=== PATIENT | female | born 1970 | race Caucasian/White ===

== ENCOUNTER 2019-06-20 07:43 | Inpatient (IN) ==
--- NOTE | 2019-06-16 10:02 | History & Physical Report ---
Date of Service June 16, 2019 Assessment & Plan (1) Breast cancer, left: Patient has invasive carcinoma involving the left breast with extensive area of distortion early suspicious for DCIS extending over 5 to 8 cm. She also has evidence of left axillary lymph node abnormality Patient has many issues which have influenced her delay in treatment include transportation, communication, and monetary issues to name a few She is a very poor candidate for attempting any kind of medical management in this situation At the present time, understanding our Covid pandemic limitation in operating on patients-I feel free do not proceed with this operation patient survival is at risk Patient is for bilateral mastectomy with bilateral sentinel lymph node biopsy History of Present Illness Primary Care Provider: Adelina Cardenas DO Patient is a 49-year-old female with a history of invasive carcinoma of the left breast and diffuse DCIS She had a history of remote atypia many years prior 03/17/2019 patient underwent biopsy at our breast center which showed invasive carcinoma with DCIS Her imaging including an MRI showed extensive disease including malignant calcifications over 5 to 8 cm of the left breast There was also concern for normal left axillary lymph nodes Attempts at additional biopsies were unsuccessful because of the patient's severe anxiety and refusal She has been evaluated extensively by myself Dr. Mike Mccarthy, and the doctors at the breast care center At this point we are proceeding with bilateral mastectomy Allergies Allergy/AdvReac Type Severity Reaction Status Date / Time Penicillins AdvReac Intermediate Rash and Verified 06/15/19 12:08 vomiting Home Medications Home Medications Medication Instructions Recorded Confirmed Type aspirin [Aspir-81] 81 mg PO QAM 06/15/19 06/15/19 History citalopram [Celexa] 10 mg PO QPM 06/15/19 06/15/19 History hydrocodone-acetaminophen [[place]] 1 tab PO QPM PRN 06/15/19 06/15/19 History Past Med/Surg History Medical History (Updated 06/15/19 @ 12:24 by Amanda Mitchell RN) Anemia Anxiety Arthritis Atrial fibrillation Breast cancer, left Chronic pain hip, back, neck Coronary artery disease Depression Diabetes mellitus, type 2 diet History of [place] (myocardial infarction) x 3 Hyperlipidemia Intellectual disability Third Level IQ Migraine headache Poor historian Poor long-term memory Stomach ulcer Surgical History (Updated 06/15/19 @ 12:24 by Amanda Mitchell RN) History of section 1990 History of tooth extraction wisdom teeth Hx of breast surgery L breast biopsy Social History Preferred Language: Ukrainian Communication Ability: Impaired Visual Impairment: Limited Hearing Ability: Normal Coating Engineer Required: No Beliefs That Will Affect Care: None marital status: Legally marital status details: Lives with Jenae. Current Living Situation: Significant Other current occupational status: unemployed Feels Safe at Home: Yes Smoking Status: Former smoker Tobacco Type: cigarettes ; Second Hand Exposure: Yes ; Hx Alcohol Use: No Hx Substance Use: No Childhood Exposure to Second-Hand Smoke: No caffeine: Yes (coffee x 1 per day.) during the past year weight has: remained stable Dental Care, Regularly: No Physical Activity Frequency: Does not Exercise Seatbelt Use: always Sunscreen Use: Yes Review of Systems All systems reviewed & are unremarkable except as noted in HPI & below Physical Exam Physical Exam: Patient's left breast does show fullness in the area of suspicion on her imaging Constitutional: well developed and well nourished; no acute distress Eyes: + anicteric sclerae Respiratory: normal respiratory effort; no respiratory distress Cardiovascular: Rate/Rhythm: regular rate Gastrointestinal (Abdomen): Percussion/Palpation: abdomen soft Musculoskeletal: Gait: normal gait Skin: no rashes, warm and dry Neurologic: awake Psychiatric: Orientation: alert
--- NOTE | 2019-06-19 10:30 | Anesthesiology Consultation ---
Date of Service June 19, 2019 Assessment & Plan (1) Encounter for pre-operative examination: Chart Review Chart Review: Pending: Refer to Additional Notes / Consult section (pending day of procedure ecg.) and Patient NOT seen in Pre Admission Testing Consults Requested none History Surgery Operation Date: 06/20/19 10:00 Proposed Procedures p Bilateral Breast Mastectomy with Bilateral [place] Lymph Node Biopsy - Eloy Parkinson MD, FACS Height/Weight Height: 5 ft 7 in Weight: 89.358 kg Allergies Allergy/AdvReac Type Severity Reaction Status Date / Time Penicillins AdvReac Intermediate Rash and Verified 06/15/19 12:08 vomiting Medications Home Medications Medication Instructions Recorded Confirmed Last Taken aspirin [Aspir-81] 81 mg PO QAM 06/15/19 06/15/19 Unknown citalopram [Celexa] 10 mg PO QPM 06/15/19 06/15/19 Unknown hydrocodone-acetaminophen [[place]] 1 tab PO QPM PRN 06/15/19 06/15/19 Unknown Past Medical History Medical History Anemia Anxiety Arthritis Atrial fibrillation Breast cancer, left Chronic pain hip, back, neck Coronary artery disease Depression Diabetes mellitus, type 2 diet History of [place] (myocardial infarction) x 3 Hyperlipidemia Intellectual disability Third Level IQ Migraine headache Poor historian Poor long-term memory Stomach ulcer Past Family History Family History Mother Anxiety Depression Diabetes Heart disease Lung disease Seizure Sister Anxiety Grandmother (Maternal) Lung cancer Grandfather (Maternal) Myocardial infarction Coronary heart disease Father Diabetes Denies family history of Ovarian cancer Prostate cancer Colorectal cancer Past Surgical History Surgical History History of section 1990 History of tooth extraction wisdom teeth Hx of breast surgery L breast biopsy Social History Smoking Status: Never smoker tobacco type: cigarettes Do You Dip or Chew Tobacco: No Smoking End Date: 5 years ago Hx Alcohol Use: No Hx Substance Use: No substance use type: does not use Testing Laboratory Results Laboratory Tests 10/06/18 06/16/19 06/16/19 15:06 00:00 00:00 WBC 6.6 Hgb 13.9 Hct 45.3 Plt Count 319 Sodium 140 Potassium 3.9 Chloride 103 Carbon Dioxide 29 BUN 11 Creatinine 0.9 Glucose 113 H Hemoglobin A1c 6.0 H
--- NOTE | 2019-06-20 06:53 | History & Physical Report ---
Date of Service June 20, 2019 Assessment & Plan (1) Breast cancer, left: for Bilateral mastectomy with Left sentinel lymph node biopsy [facility], Gen LMA admit for observation we do not have enough nuclear tracer to perform both sides- It has been extremely difficult to get the pt to this point for surgery- we will proceed with surgery and Lt SLN bx- if Rt breast shows Invasive Ca on path- may need Rt SLN bx later History of Present Illness Primary Care Provider: Adelina Cardenas, DO 49 yo female with h/o Lt breast Invasive ductal Ca with extensive malignant appearing calcs over 5-8 cm on imaging including MRI Pt is not in favor of addnl bxs and has decided on bilateral mastectomy with Left sentinel lymph node bx she has suspicious appearing LNs in Lt axilla and may require Lt axillary dissection she has seen Dr Mccarthy - oncology and he is in agreement Allergies Allergy/AdvReac Type Severity Reaction Status Date / Time Penicillins AdvReac Intermediate Rash and Verified 06/20/19 08:42 vomiting Home Medications Home Medications Medication Instructions Recorded Confirmed Type aspirin [Aspir-81] 81 mg PO QAM 06/15/19 06/20/19 History citalopram [Celexa] 10 mg PO QPM 06/15/19 06/20/19 History hydrocodone-acetaminophen [[place]] 1 tab PO QPM PRN 06/15/19 06/20/19 History Past Med/Surg History Medical History Anemia Anxiety Arthritis Atrial fibrillation Breast cancer, left Chronic pain hip, back, neck Coronary artery disease Depression Diabetes mellitus, type 2 diet History of [place] (myocardial infarction) x 3 Hyperlipidemia Intellectual disability Third Level IQ Migraine headache Poor historian Poor long-term memory Stomach ulcer Surgical History History of section 1990 History of tooth extraction wisdom teeth Hx of breast surgery L breast biopsy Family History Mother Anxiety Depression Diabetes Heart disease Lung disease Seizure Sister Anxiety Grandmother (Maternal) Lung cancer Grandfather (Maternal) Myocardial infarction Coronary heart disease Father Diabetes Denies family history of Ovarian cancer Prostate cancer Colorectal cancer Social History Preferred Language: Danish Communication Ability: Effective Communication Ability Comment: limited reading Visual Impairment: Limited Hearing Ability: Normal Clinical Psychologist Private Practice Required: No Beliefs That Will Affect Care: None marital status: Legally marital status details: Lives with Jenae. Current Living Situation: Significant Other current occupational status: unemployed Other Information That Helps Us Care for You: No Feels Safe at Home: Yes Safety Concerns: Feels Safe At This Time Smoking Status: Never smoker Tobacco Type: cigarettes ; Do You Dip or Chew Tobacco: No ; Smoking End Date: 5 years ago ; Second Hand Exposure: Yes ; Hx Alcohol Use: No Hx Substance Use: No Childhood Exposure to Second-Hand Smoke: No caffeine: Yes (coffee x 1 per day.) during the past year weight has: remained stable Dental Care, Regularly: No Physical Activity Frequency: Does not Exercise Seatbelt Use: always Sunscreen Use: Yes Review of Systems All systems reviewed & are unremarkable except as noted in HPI & below Physical Exam Physical Exam: Lt breast fullness UOQ Constitutional: well developed and well nourished; no acute distress Eyes: + anicteric sclerae Respiratory: normal respiratory effort; no respiratory distress Cardiovascular: Rate/Rhythm: regular rate Gastrointestinal (Abdomen): Percussion/Palpation: abdomen soft Musculoskeletal: Gait: normal gait Skin: no rashes, warm and dry Neurologic: awake Psychiatric: Orientation: alert
[~2019-06-20 07:43] MED LIST: CLINDAMYCIN 900 MG in DEXTROSE 5% 50 ML IV SCH; LACTATED RINGER'S 1,000 ML IV SCH; ROCURONIUM BROMIDE 10 MG/ML 5 ML VIAL ONE
--- NOTE | 2019-06-20 08:56 | Nuclear Medicine Report ---
LYMPHOSCINTIGRAPHY CLINICAL HISTORY: Left breast cancer. PROCEDURE: Using standard sterile technique, 4 intradermal and one deep injection of 0.48 mCi of Lymp hoseek was placed in the left periareolar breast. The patient tolerated the procedure well. There wer e no immediate complications. The patient was subsequently transported to the surgical suite. No imag ing was obtained at the referring physician's request. IMPRESSION: Injection of 0.48 mCi of Lymphoseek in the left breast. ACT 112: Negative or not required by law. Electronically signed by: Frank Tirado M.D. 06/20/2019 8:54 AM
[2019-06-20] MEDS ORDERED: ATROPINE SULFATE 0.1 MG/ML 10ML SYR IV PRN (09:13)
[2019-06-20] MEDS ORDERED: ePHEDrine sulfate 50 MG/ML AMP IV PRN (09:13)
[2019-06-20] MEDS ORDERED: ONDANSETRON INJ 2 MG/ML 2 ML VIAL IV PRN ×2 (09:13→14:31)
[2019-06-20] MEDS ORDERED: fentaNYL citrate 100 MCG/2 ML VIAL IV PRN (09:13)
[2019-06-20] MEDS ORDERED: DEXAMETHASONE SOD INJ 4 MG/ML VIAL ONE (09:57)
[2019-06-20] MEDS ORDERED: fentaNYL citrate 100 MCG/2 ML VIAL ONE ×3 (09:57→12:17)
[2019-06-20] MEDS ORDERED: PROPOFOL IV EMULSION 10 MG/ML 20 ML VIAL IV ONE (09:57)
[2019-06-20] MEDS ORDERED: ONDANSETRON INJ 2 MG/ML 2 ML VIAL ONE (09:57)
[2019-06-20] MEDS ORDERED: LIDOCAINE HCL 2% 2 ML VIAL/AMP(20MG/ML) INFIL ONE (09:57)
[2019-06-20] MEDS ORDERED: BUPIVACAINE 0.5 % 5 MG/1 ML MPF 30ML VIAL ONE (09:58)
[2019-06-20] MEDS ORDERED: METHYLENE BLUE 0.5% 10 ML VIAL ONE (09:59)
[2019-06-20] MEDS ORDERED: ACETAMINOPHEN 1000 MG/100 ML IV IV ONE ×3 (11:57→13:41)
--- NOTE | 2019-06-20 13:05 | Post Operative Brief Note ---
PG Immediate Post Op with CF Date of Surgery June 20, 2019 Pre & Post Diagnosis Operation Date: 06/20/19 10:00 Pre-Op Diagnosis: Left Breast Cancer Post-Op Diagnosis: Left Breast Cancer I identified the patient and participated in the time-out.: Yes Procedure Operation Date: 06/20/19 10:00 Actual Procedures p Bilateral Breast Mastectomy with Left [place] Lymph Node Biopsy(Bilateral) - Eloy Parkinson MD, FACS Surgeon Eloy Parkinson MD, FACS Sleep Technician Talya Delgado Estimated Blood Loss 30 Findings Consistent with Post-Op Diagnosis Specimens Specimen Description: Permanent Specimens: A: right breast long lateral B) Left Axillary Lymph Node C) Left Axillary Tissue D) Left Breast, suture lateral/axilla Frozen Specimens: 1) Left [place] Lymph Node Drains Toni-Fischer Drain (bilateral breasts)
[2019-06-20] MEDS ORDERED: ACETAMINOPHEN 1,000 MG/100 ML VIAL IV ONE (13:06)
--- NOTE | 2019-06-20 13:23 | Operative Report (OR) ---
DATE OF OPERATION: 06/20/2019 NAME OF OPERATION: Bilateral mastectomy with sentinel lymph node biopsy on the left. PREOPERATIVE DIAGNOSIS: Left breast cancer. POSTOPERATIVE DIAGNOSIS: Same. STAFF SURGEON: Eloy Parkinson M.D. PACK OPERATOR: Chio Delgado. ANESTHESIA: General. DESCRIPTION OF PROCEDURE: The patient was brought in the operating room and placed on the operating table in supine position. Her arms were extended onto an arm board. Her chest and axilla were prepped and draped bilaterally. We began on the right side. The breasts were both marked for elliptical incision around the nipple areolar complex from sternum to axilla. The right side was approached. Incision was made superiorly and inferiorly and then the breast tissue was dissected away from the subcutaneous tissue down to the chest wall. The breast tissue was then dissected away from the pectoralis major muscle. The breast tissue in the right side was marked with a long silk suture lateral. The site was irrigated. Packing applied. At this point, the left side was approached. We made an incision in the axilla using the Neoprobe carrying dissection down identifying 3 axillary lymph nodes, 1 was very hot and sent for frozen section. The other 2 were sent for permanent section. Additional fatty tissue was taken from the axilla and sent for permanent section. The sentinel lymph node was negative. During the frozen section, mastectomy was performed on the left side. Elliptical incision made again from sternum to axilla incorporating the nipple areolar complex, dissecting the breast tissue away from the subcutaneous tissue superiorly and inferiorly down to the chest wall, dissecting the breast tissue away from the chest wall. There was some thickening in the axilla. This was marked with a long nylon suture in the lateral axillary area. At this point the wound was irrigated. The left axilla closed, reapproximating subcutaneous tissue using 2-0 plain suture and then the skin using 4-0 nylon suture. Chest wound reapproximated after placing #15 round Toni-Fischer drains into both wounds securing them using 3-0 nylon suture. Subcutaneous tissue was reapproximated using interrupted 3-0 Vicryl suture. Skin reapproximated using running subcuticular 4-0 Monocryl with Steri-Strips. Dressings applied and patient transferred to recovery room in stable condition. I attest to the content of the Intraoperative Record and any orders documented therein. Any exception s are noted below.
[2019-06-20] MEDS ORDERED: GLYCOPYRROLATE 0.2 MG/ML VIAL ONE (13:25)
[2019-06-20] MEDS ORDERED: NEOSTIGMINE METHYLSULFATE 5 MG/5 ML SYR ONE (13:25)
[2019-06-20] MEDS ORDERED: MoRPHine SULFATE 4 MG/ML 1 ML CARP\\VIAL IV PRN (14:31)
[2019-06-20] MEDS ORDERED: SODIUM CHLORIDE 0.9% 1000ML 1,000 ML IV SCH (14:31)
[2019-06-20] MEDS ORDERED: PROMETHAZINE HCL 25 MG in SODIUM CHLORIDE 0.9% 50 ML IV PRN (14:31)
[2019-06-20] MEDS ORDERED: PROMETHAZINE HCL 12.5 MG in SODIUM CHLORIDE 0.9% 50 ML IV PRN (14:31)
[2019-06-20] MEDS ORDERED: HYDROCODONE/ACETAMOPHEN 5/325MG TAB PO PRN (14:31)
[2019-06-20] MEDS ORDERED: MoRPHine SULFATE 2 MG/ML CARP IV PRN (14:31)
[2019-06-20] MEDS ORDERED: ACETAMINOPHEN 325 MG TAB PO PRN (14:31)
--- NOTE | 2019-06-20 14:36 | Anesthesiology Progress Note ---
Date of Service June 20, 2019 Anesthesia Post Procedure Vital Signs Vital Signs: Temp Pulse Pulse Resp BP BP Pulse Ox 06/20/19 14:27 97.3 F L 82 16 169/95 H 99 06/20/19 14:10 97.9 F 82 20 168/97 H 100 06/20/19 14:00 84 20 190/98 H 100 06/20/19 13:50 95 H 16 138/118 H 100 06/20/19 13:43 97.2 F L 90 14 149/99 H 100 06/20/19 08:54 99.1 F 74 18 145/87 H 96 Transfer of Care Handoff Completed per policy Notes Mental Status: alert / awake / arousable and participated in evaluation Patient Amnestic to Procedure: Yes Nausea / Vomiting: adequately controlled Pain: adequately controlled Airway Patency, RR, SpO2: stable & adequate BP & HR: stable & adequate Hydration State: stable & adequate Anesthetic Complications: no major complications apparent and Pt Satisfied with anesthetic care
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
[2019-06-20] MEDS ORDERED: HydrALAZINE HCL 20 MG/ML VIAL IV PRN (15:15)
[2019-06-20] MEDS: CEFAZOLIN 1000MG 1,000 MG/7.5 ML SYR IV SCH (15:22)
--- NOTE | 2019-06-20 16:07 | Electrocardiogram Report ---
Test Reason : Blood Pressure : / mmHG Vent. Rate : 075 BPM Atrial Rate : 075 BPM P-R Int : 138 ms QRS Dur : 096 ms QT Int : 394 ms P-R-T Axes : 048 048 038 degrees QTc Int : 439 ms Normal sinus rhythm Cannot rule out Anterior infarct , age undetermined Abnormal ECG No previous ECGs available Confirmed by Waldemar Gusman ([id number]) on 06/20/2019 4:07:03 PM Referred By: Eloy Parkinson Confirmed By:Waldemar Gusman
[2019-06-20] MEDS: HYDROCODONE/ACETAMOPHEN 5/325MG TAB PO PRN (18:33)
[2019-06-20] MEDS: CITALOPRAM 20 MG TAB PO SCH (20:28)
[2019-06-21] MEDS: CEFAZOLIN 1000MG 1,000 MG/7.5 ML SYR IV SCH ×4 (00:16→23:52)
[2019-06-21] MEDS: HYDROCODONE/ACETAMOPHEN 5/325MG TAB PO PRN (06:05)
[2019-06-21 06:08] LABS: Hematocrit (blood only) 38.7 % (37-47); Hemoglobin 12.7 g/dL (12.0-16.0); Mean Corpuscular Hemoglobin 27.5 pg (25-34); Mean Corpuscular Hgb Conc 32.8 g/dL (32-36); Mean Corpuscular Volume 83.9 fL (80-100); Mean Platelet Volume 9.9 fL (7.4-10.4); Platelet Count 321 K/uL (130-400); RDW Coefficient of Variation 15.2 % (11.5-14.5); RDW Standard Deviation 46.8 fL (36.4-46.3); Red Blood Count 4.61 M/uL (4.2-5.4); White Blood Count 9.47 K/uL (4.8-10.8)
--- NOTE | 2019-06-21 07:36 | Surgery Progress Note ---
Date of Service June 21, 2019 Assessment & Plan (1) H/O bilateral mastectomy: Patient is awake and alert in no distress Her drains have had expected serosanguineous output She has received some pain medication although her pain is controlled We will continue her on her IV antibiotics Ask case management for visiting nurse Plan would be discharged tomorrow Results & Data Vital Signs (Past 12 Hours) Vital Signs Temp Pulse Resp BP Pulse Ox 06/20/19 23:30 37.4 C 94 H 16 138/66 93 PG Care Time/CCT Total # of Minutes Spent Total Time Spent with Patient: Total time spent is greater than 50% in coordination of care (as documented) at patient's floor/unit and/or counseling patient: Coding Level of Care Code None Diagnoses H/O bilateral mastectomy Z90.13
--- NOTE | 2019-06-21 07:50 | Anesthesiology Progress Note ---
Date of Service June 21, 2019 Anesthesia Post Procedure Vital Signs Vital Signs: Temp Pulse Pulse Pulse Resp BP BP 06/20/19 23:30 37.4 C 94 H 16 138/66 06/20/19 19:12 37.1 C 93 H 18 185/84 H 06/20/19 17:36 37.5 C 98 H 18 170/91 H 06/20/19 16:40 37 C 86 18 169/83 H 06/20/19 15:39 37.1 C 91 H 18 170/94 H 06/20/19 15:13 36.7 C 78 16 175/98 H 06/20/19 14:27 36.3 C L 82 16 169/95 H 06/20/19 14:10 36.6 C 82 20 168/97 H 06/20/19 14:00 84 20 190/98 H 06/20/19 13:50 95 H 16 138/118 H 06/20/19 13:43 36.2 C L 90 14 149/99 H 06/20/19 08:54 37.3 C 74 18 145/87 H Pulse Ox 06/20/19 23:30 93 06/20/19 19:12 90 06/20/19 17:36 92 06/20/19 16:40 93 06/20/19 15:39 91 06/20/19 15:13 91 06/20/19 14:27 99 06/20/19 14:10 100 06/20/19 14:00 100 06/20/19 13:50 100 06/20/19 13:43 100 06/20/19 08:54 96 Notes Mental Status: alert / awake / arousable and participated in evaluation Nausea / Vomiting: adequately controlled Pain: adequately controlled Airway Patency, RR, SpO2: stable & adequate BP & HR: stable & adequate Hydration State: stable & adequate Anesthetic Complications: no major complications apparent
[2019-06-21] MEDS: HEPARIN SOD 5,000 UNIT/0.5 ML VIAL SQ SCH ×2 (08:12→21:07)
[2019-06-21] MEDS: CITALOPRAM 20 MG TAB PO SCH (21:06)
[2019-06-22] MEDS: HEPARIN SOD 5,000 UNIT/0.5 ML VIAL SQ SCH (08:02)
[2019-06-22] MEDS: CEFAZOLIN 1000MG 1,000 MG/7.5 ML SYR IV SCH (08:02)
--- NOTE | 2019-06-22 08:52 | Discharge Summary (DS) ---
PRINCIPAL DIAGNOSIS: Left breast cancer. PROCEDURE: The patient underwent bilateral mastectomy with left sentinel lymph node biopsy. HOSPITAL COURSE: The patient was brought into the hospital on 06/20/2019. She underwent injection for sentinel lymph node biopsy and then taken to the operating room where she underwent bilateral mastectomy with sentinel lymph node biopsy. The sentinel lymph node was negative. She has done very well over the past night and is felt stable for discharge home today to be followed in the surgical clinic next week. She does have [address] We do plan on setting up a visiting nurse for the patient.
== END 2019-06-22 12:26 | disposition home health service (06) | DRG 580 ==
LOC: ASU 07:43 → 3E 13:06